=== PATIENT | male | born 1940 ===

== ENCOUNTER 2020-04-28 03:12 | Outpatient (CLI) | payer OTHER | END 2020-04-28 15:14 | disposition home or self-care (01) | LOC: PPH VACUNA 03:12 | PROVIDERS: ATTEND Emergency Medicine Pediatric Emergency Medicine | DX: Z23 Encounter for immunization (principal) ==

== ENCOUNTER 2020-05-19 17:15 | Outpatient (CLI) | payer OTHER | END 2020-05-19 17:16 | disposition home or self-care (01) | LOC: PPH VACUNA 17:15 | PROVIDERS: ATTEND Emergency Medicine Pediatric Emergency Medicine | DX: Z23 Encounter for immunization (principal) ==